=== PATIENT | female | born 1960 | race African-American/Black ===

== ENCOUNTER 2024-02-16 05:49 | Emergency (ER) | payer SELFPAY ==
[~2024-02-16] VITALS: Ht 157.5 cm; Wt 82.0 kg
[2024-02-16 06:11] VITALS: O2SAT 100
[2024-02-16 06:50] LABS: BASOPHILS % 0.6 % (0.0-2.0); EOSINOPHILS % 3.9 % (0.0-5.0); HEMATOCRIT. 36.8 % (36.0-48.0); HEMOGLOBIN. 11.9 g/dL (12.0-16.0); LYMPHOCYTES % 22.4 % (20.0-50.0); MEAN CORPUSCULAR HEMOGLOBIN 27.1 pg (28.0-32.0); MEAN CORPUSCULAR HGB CONC 32.4 g/dL (31.0-37.0); MEAN CORPUSCULAR VOLUME 83.6 fL (81.0-99.0); MEAN PLATELET VOLUME 7.1 fl (7.4-10.4); MONOCYTES % 5.8 % (2.0-8.0); NEUTROPHILS % 67.3 % (40.0-76.0); PLATELET 349 x1000/uL (130-400); RED CELL DISTRIBUTION WIDTH 15.3 % (11.6-14.6); WHITE BLOOD COUNT 5.8 x1000/uL (4.5-11.0)
[2024-02-16 07:13] LABS: CHLORIDE 106 mEq/L (98-107); POTASSIUM 3.7 mEq/L (3.5-5.1); SODIUM 138 mEq/L (136-145)
[2024-02-16 07:14] LABS: CALCIUM 9.4 mg/dL (8.7-10.4); CARBON DIOXIDE 27 mEq/L (21-32)
[2024-02-16 07:19] LABS: CREATININE 0.9 mg/dL (0.6-1.0); GLUCOSE 124 mg/dL (70-105); UREA NITROGEN BLOOD 15 mg/dL (9-23)
[2024-02-16 07:21] LABS: ALANINE AMINOTRANSFERASE 7 IU/L (10-49); ALBUMIN 4.6 g/dL (3.2-4.8); ASPARTATE AMINOTRANSFERASE 19 IU/L (<34); BILIRUBIN TOTAL 0.5 mg/dL (0.1-1.0); PROTEIN TOTAL 8.4 g/dL (6.0-8.3)
[2024-02-16 07:23] LABS: TROPONIN I HIGH SENSITIVITY < 4 ng/L (3.0-34)
[2024-02-16] MEDS: METOCLOPRAMIDE HCL 10MG/2ML VIAL IM ONE (09:26)
[2024-02-16] MEDS: KETOROLAC 30MG/ML VIAL IM ONE (09:26)
[2024-02-16] MEDS: DIPHENHYDRAMINE 50MG/ML VIAL IM ONE (09:27)
[2024-02-16 09:59] LABS: CLARITY URINE CLEAR (CLEAR); COLOR URINE YELLOW (YELLOW); GLUCOSE URINE NEGATIVE (NEGATIVE); KETONES URINE NEGATIVE (NEGATIVE); LEUKOCYTE ESTERASE URINE TRACE (NEGATIVE); NITRITE URINE NEGATIVE (NEGATIVE); OCCULT BLOOD URINE NEGATIVE (NEGATIVE); PROTEIN URINE TRACE (NEGATIVE); SPECIFIC GRAVITY URINE 1.014 (1.005-1.030); UROBILINOGEN URINE 0.2 E.U./dL (0.2-1.0)
[2024-02-16 10:11] LABS: SQUAMOUS EPITHELIAL CELL URINE 3+ /lpf (RARE/1+)
[2024-02-16 10:12] LABS: BACTERIA URINE 3+; WBC URINE 0-2 /hpf (0-2)
[2024-02-16 10:13] LABS: RBC URINE NONE SEEN /hpf (0-2)
[2024-02-16 11:18] VITALS: BP 101/56; PULSE 58; RESP 20; TEMP 98
== END 2024-02-16 12:47 | disposition home or self-care (01) ==
LOC: ER 06:16
DX: G44.209 Tension-type headache, unspecified, not intractable (principal); R07.89 Other chest pain
CPT/HCPCS: 80053; 81003; 85025; 84484; 36415; 71045; 70450; 93005; 96372; 99285; J1200; J2765; Z7610; J1885